=== PATIENT | female | born 1995 | race Caucasian/White ===

== ENCOUNTER 2018-03-22 13:07 | Emergency (ER) | payer OTHER ==
[~2018-03-22 13:07] MED LIST: FLU60VIA21 IM ONLY; [UNRECOGNIZED DRUG - CODE] PO
--- NOTE | 2018-03-22 13:12 | ER Report ---
History and Physical Time Seen By MD: 13:11 HPI/ROS CHIEF COMPLAINT: Laceration HISTORY OF PRESENT ILLNESS: This is a 23-year-old female presents to emergency department for laceration. Patient states that about 20 minutes prior to arrival she was at work, putting a knife away and lacerated the distal aspect of her left thumb, the very edge of the nail is involved. Bleeding is controlled. CMS intact distal to the injury. No other complaints. Good extension and flexion. REVIEW OF SYSTEMS: Respiratory: No cough, no dyspnea. Cardiovascular: No chest pain, no palpitations. Gastrointestinal: No vomiting, no abdominal pain. Musculoskeletal: No back pain. Integument: As above. Allergies: Coded Allergies: No Known Drug Allergies (Verified , 03/22/18) Home Meds Active Scripts Cephalexin 500 Mg Tab (KEFLEX 500 MG TAB) 500 Mg Tablet, 500 MG PO Q6H, #28 TAB 0 Refills Prov:YOSEF BUTTS [employer]-BC 03/22/18 Past Medical/Surgical History The patient has a past medical and surgical history of depression. Reviewed Nurses Notes: Yes Smoking Status: Never Smoker Hx Substance Use Disorder: No Hx Alcohol Use: No Constitutional Vital Sign - Last 24 Hours 03/22/18 13:17 Temp 98.6 Pulse 82 Resp 12 B/P (MAP) 113/69 Pulse Ox 96 O2 Delivery Room Air Physical Exam General Appearance: The patient is alert, has no immediate need for airway protection and no current signs of toxicity. Eyes: Pupils equal and round no injection. Respiratory: Chest is non tender, lungs are clear to auscultation. Cardiac: regular rate and rhythm. Gastrointestinal: Abdomen is soft and non tender, no masses, bowel sounds normal. Musculoskeletal: Neck: Neck is supple and non tender. Extremities have full range of motion and are non tender. Skin: 1.5 cm laceration to the distal end of the left index finger, involving a small sliver of the medial aspect of the nail. CMS intact distal to the injury. DIFFERENTIAL DIAGNOSIS: After history and physical exam differential diagnosis was considered for laceration. Medical Decision Making ED Course/Re-evaluation ED Course The patient was admitted to room. A history and physical were obtained. Differential diagnoses were considered. The wound was anesthetized and repaired with sutures as noted below. Patient tolerated very well. Given the depth of the wound and proximity to the bone, I did elect to start patient on antibiotics. Patient was agreeable with this. Patient was encouraged to follow-up with her primary care provider or return to the ER to have the sutures removed. Continue monitoring for signs of infection. Patient had no other questions or concerns at this time and was discharged home. Procedure: Laceration repair. Verbal consent was obtained from the patient. The 1.5 centimeter laceration on the distal end of the left index finger was anesthetized in the usual fashion. The wound was scrubbed, draped and explored to its base with a gloved finger. There were no deep structures involved. No tendon injury was identified. The wound was repaired with 5, 5-0 Prolene simple interrupted sutures. The wound repair was simple. The procedure was performed by myself. Decision to Disposition Date: Mar 22, 2018 Decision to Disposition Time: 14:43 Depart Departure Latest Vital Signs Vital Signs Date Time Temp Pulse Resp B/P (MAP) Pulse Ox O2 Delivery O2 Flow Rate FiO2 03/22/18 13:17 98.6 82 12 113/69 96 Room Air Impression: Primary Impression: Finger laceration Condition: Improved Disposition: HOME OR SELF-CARE Referrals: FELICE SULLIVAN DNP, [employer] (PCP) New Scripts Cephalexin 500 Mg Tab (KEFLEX 500 MG TAB) 500 Mg Tablet 500 MG PO Q6H, #28 TAB 0 Refills Prov: YOSEF BUTTS-EMILY 03/22/18 Patient Instructions: Acute Wound Care (ED), Hand Laceration Additional Instructions: Keep wound dry for 48 hours. Follow up with your primary care provider in the next 7 days to have sutures removed. Monitor for signs of infection; redness, swelling, heat, discharge, increasing pain or red streaking. Take Tylenol or Ibuprofen as needed for pain. Return to the ER with any concerns. You may change dressing as needed. Take the Keflex as prescribed. Problem Qualifiers Primary Impression: Finger laceration Encounter type: initial encounter Finger: index finger Damage to nail status: with damage Foreign body presence: without foreign body Laterality: left Qualified Codes: S61.311A - Laceration without foreign body of left index finger with damage to nail, initial encounter YOSEF BUTTS [facility]- Mar 22, 2018 13:12
[2018-03-22 13:17] VITALS: BP 113/69
[2018-03-22] MEDS ORDERED: CEPH500T7 PO (14:44)
== END 2018-03-22 14:52 | disposition home or self-care (01) ==
LOC: ER 13:11
DX: S61.311A Laceration without foreign body of left index finger with damage to nail, initial encounter (principal); W26.0XXA Contact with knife, initial encounter
CPT/HCPCS: 99283